=== PATIENT | female | born 1980 | race Caucasian/White ===

== ENCOUNTER 2018-10-14 07:13 | Emergency (ER) | payer MEDICAID, OTHER ==
[~2018-10-14] VITALS: Ht 167.6 cm; Wt 66.0 kg
[~2018-10-14 07:13] MED LIST: CYCL10TA7 PO; NAPR-985 PO
[2018-10-14 07:14] VITALS: BP 101/56; PULSE 74; RESP 20; Ht 167.6 cm; Wt 66.0 kg
[2018-10-14] MEDS ORDERED: NAPR-985 PO (07:30)
[2018-10-14] MEDS ORDERED: PSEU-79 PO (07:30)
--- NOTE | 2018-10-14 07:49 | ERD ---
ER Documentation Chief Complaint Chief Complaint Complains of a sore throat x 3 days HPI 38-year-old female presenting with sore throat times 3 days. Patient has mild congestion and has not taken medications for symptoms. Denies fevers. Denies medical problems. NKDA. Surgical history denies. Up-to-date on vaccinations ROS All systems reviewed and are negative except as per history of present illness. Medications Home Meds Active Scripts Pseudoephedrine Hcl* (Suphedrin*) 30 Mg Tablet, 30 MG PO Q6 PRN for CONGESTION, #30 TAB Prov:SKYE IYERC 10/14/18 Naproxen* (Naprosyn*) 500 Mg Tablet, 500 MG PO BID PRN for PAIN AND/OR INFLAMMATION, #30 TAB Prov:SKYE IYER PA-C 10/14/18 Cyclobenzaprine Hcl* (Cyclobenzaprine Hcl*) 10 Mg Tablet, 10 MG PO BID, #10 TAB Prov:OPAL CAMPOVERDE PA-C 03/04/16 Naproxen* (Naprosyn*) 500 Mg Tablet, 500 MG PO BID PRN for PAIN AND/OR INFLAMMATION, #30 TAB Prov:OPAL CAMPOVERDEC 03/04/16 Allergies Allergies: Coded Allergies: No Known Drug Allergies (Unverified Allergy, Unknown, 01/05/14) PMhx/Soc Medical and Surgical Hx: pt denies Medical Hx, pt denies Surgical Hx Hx Alcohol Use: No Hx Substance Use: No Hx Tobacco Use: Yes Smoking Status: Current every day smoker FmHx Family History: No diabetes, No coronary disease, No other Physical Exam Vitals Vital Signs Date Temp Pulse Resp B/P (MAP) Pulse Ox O2 O2 Flow FiO2 Time Delivery Rate 10/14/18 97.4 74 20 101/56 100 07:14 (71) Physical Exam GENERAL: The patient is well-appearing, well-nourished, in no acute distress HEENT: Atraumatic. Conjunctivae are pink. Pupils equal, round, and reactive to light. There is no scleral icterus. Tympanic membranes clear bilaterally. Oropharynx clear. Positive nasal congestion NECK: C-spine is soft and supple. There is no meningismus. There is no cervical lymphadenopathy. CHEST: Clear to auscultation bilaterally. There are no rales, wheezes or rhonchi. HEART: Regular rate and rhythm. No murmurs, clicks, rubs or gallops. Procedures/MDM MDM: 38-year-old female presenting with sore throat. Patient's exam is non- concerning for strep and patient will be discharged with supportive medications. I believe patient likely has viral syndrome. Patient is told symptoms change or worsen to return immediately to the ER. All questions answered at discharge Departure Diagnosis: Primary Impression: Sore throat Condition: Stable Patient Instructions: Self-Care for Sore Throats Referrals: [facility] YOU HAVE RECEIVED A MEDICAL SCREENING EXAM AND THE RESULTS INDICATE THAT YOU DO NOT HAVE A CONDITION THAT REQUIRES URGENT TREATMENT IN THE EMERGENCY DEPARTMENT. FURTHER EVALUATION AND TREATMENT OF YOUR CONDITION CAN WAIT UNTIL YOU ARE SEEN IN YOUR DOCTORS OFFICE WITHIN THE NEXT 1-2 DAYS. IT IS YOUR RESPONSIBILITY TO MAKE AN APPOINTMENT FOR FOLOW-UP CARE. IF YOU HAVE A PRIMARY DOCTOR --you should call your primary doctor and schedule an appointment IF YOU DO NOT HAVE A PRIMARY DOCTOR YOU CAN CALL OUR PHYSICIAN REFERRAL HOTLINE AT IF YOU CAN NOT AFFORD TO SEE A PHYSICIAN YOU CAN CHOSE FROM THE FOLLOWING [facility] [id number] [facility] [facility] [address] [facility] [address] [facility] [facility] [address] [facility] [facility] [address] [facility] [facility] [address] [facility]. [facility]. [address] [place] Additional Instructions: FOLLOW UP WITH YOUR PRIMARY CARE PHYSICIAN TOMORROW.Return to this facility if you are not improving as expected. SKYE IYER PA-C Oct 14, 2018 07:49
== END 2018-10-14 08:04 | disposition home or self-care (01) ==
LOC: FTE 07:13
DX: J02.9 Acute pharyngitis, unspecified (principal); F17.210 Nicotine dependence, cigarettes, uncomplicated
CPT/HCPCS: 99282